=== PATIENT | male | born 1960 | race Caucasian/White ===

== ENCOUNTER 2021-04-02 06:48 | Emergency (ER) | payer OTHER ==
[2021-04-02 07:59] LABS: RED BLOOD COUNT 4.68 M/UL (4.20-5.50); WHITE BLOOD COUNT 8.8 K/UL (4.5-11.0)
[2021-04-02] MEDS ORDERED: HYDROCODON-ACE1 EAC4 PO (10:14)
[2021-04-02] MEDS ORDERED: ONDANSETRON ODT4 MG SL (10:17)
[2021-04-02] MEDS ORDERED: FLOMAX 0.4 MG0.4 MG PO (10:17)
== END 2021-04-02 10:43 | disposition home or self-care (01) ==
LOC: ER1 06:48
PROVIDERS: Physician Assistant
DX: N13.2 Hydronephrosis with renal and ureteral calculous obstruction (principal)
CPT/HCPCS: 80053; 81001; 83690; 85025; 96374; 96375; 99284; J1885; J2405; J7030

== ENCOUNTER → 2021-07-02 | Outpatient (CLI) | payer BC ==
[~2021-07-02] MED LIST: FLOMAX 0.4 MG0.4 MG PO; HYDROCODON-ACE1 EAC4 PO; ONDANSETRON ODT4 MG SL
== END ==
LOC: EXRD 12:36
DX: N20.1 Calculus of ureter (principal)
CPT/HCPCS: 76775